=== PATIENT | male | born 1990 | race Caucasian/White ===

== ENCOUNTER 2017-03-25 10:46 | Emergency (ER) | payer OTHER ==
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
== END 2017-03-25 11:40 | disposition disaster alternative care site (69) ==
LOC: GACC 10:46
DX: M25.511 Pain in right shoulder (principal); M54.2 Cervicalgia; Z88.1 Allergy status to other antibiotic agents; Z88.8 Allergy status to other drugs, medicaments and biological substances; V89.2XXA Person injured in unspecified motor-vehicle accident, traffic, initial encounter; Y92.488 Other paved roadways as the place of occurrence of the external cause

== ENCOUNTER → 2017-04-02 | Outpatient (CLI) | payer BC, OTHER | END | disposition disaster alternative care site (69) | LOC: GRAD 13:22 | DX: M54.2 Cervicalgia (principal) ==